=== PATIENT | female | born 1980 | race Two or more races ===

== ENCOUNTER 2017-08-09 09:53 | Emergency (ER) | payer SELFPAY ==
[2017-08-09 09:59] VITALS: BP 118/78; PULSE 88; RESP 20; TEMP 98.4; O2SAT 97
--- NOTE | 2017-08-09 10:22 | EDPHY ---
H & P Time Seen by Provider: 08/09/17 10:10 HPI/ROS: CHIEF COMPLAINT: Acute low back pain times 6 days HISTORY OF PRESENT ILLNESS: 37-year-old female history of chronic intermittent , recurrent low back pain, complaining of 6 days of bilateral paraspinous low back pain with mild left lower extremity radicular pain, arrives via private vehicle. Pain is reproducible with movement, better if she is standing erect or laying supine. Worse with bending or rotational movements of the waist. No incontinence or retention. No saddle anesthesia. No trauma or fall. No fever or chills. No flu-like symptoms. PRIMARY CARE PROVIDER: [facility] REVIEW OF SYSTEMS: A ten point review of systems was performed and is negative with the exception of the items mentioned in the HPI PAST MEDICAL & SURGICAL HISTORY: Chronic intermittent, recurrent low back pain. SOCIAL HISTORY: Nonsmoker no IV drug use , works as a [employer] PHYSICAL EXAM (Prior to examination, patient consented to physical exam, hands were washed and my usual and customary physical exam procedures followed) 1) GENERAL: Well-developed, well-nourished, alert and oriented. Appears uncomfortable 2) HEAD: Normocephalic, atraumatic 3) HEENT: Pupils equal, round, reactive to light bilaterally. Sclera anicteric. Nasopharynx, oropharynx, clear, no lesions. 4) NECK: Full range of motion, no meningeal signs. 5) LUNGS: Clear auscultation bilaterally, no wheezes, no rhonchi, no retractions. 6) HEART: Regular rate and rhythm, no murmur, no heave, no gallop. 7) ABDOMEN: No guarding, no rebound, no focal tenderness, negative McBurney's, negative Martinez's, negative Rovsing's, negative peritoneal sign, 8) MUSCULOSKELETAL: Moving all extremities, no focal areas of tenderness, no obvious trauma. No peripheral edema or discoloration. 9) BACK: tender to palpation paraspinous lumbar muscle. Reproducible pain with bending rotational movements the waist. No CVA tenderness, no midline vertebral tenderness, no fluctuance, no step-off, no obvious trauma, no visual or palpable abnormality. Patella, Achilles reflexes intact to bilateral strength 5/5 10) SKIN: No rash, no petechiae. 11) NEURO: Awake, alert, and oriented to person, place and time. Answers questions appropriately. There were no obvious focal neurologic abnormalities. No cerebellar dysfunction. Normal steady gait. Upper and lower extremities bilaterally with strength 5 / 5, reflexes 2+.. DIFFERENTIAL DIAGNOSIS: In no particular order, including but not limited to, fracture, sprain/strain, cauda equina, spinal infectious etiology. MEDICAL DECISION MAKING Lower index of suspicion for cauda equina, epidural abscess, epidural hematoma, lumbar myositis, diskitis, as the patient is neurologically intact in the lower extremities, has patella and Achilles reflexes intact and equal bilaterally, has no neurologic deficits, no incontinence, no retention, no midline pain, no fluctuance, afebrile, no flulike symptoms. Pain may be secondary to muscular strain, may be secondary to discogenic etiology. At this point I do not identify definitive indication for emergent MRI, however patient may necessitate this on an outpatient basis. Plan will be discharged with Flexeril , lidocaine patches, Medrol Dosepak. Inquired about prior history of steroid use and she denies adverse effects or mental health history. Patient given acute back pain precautions. Patient verbalizes understanding of discharge instructions. Care of patient under supervision of secondary supervising physician Dr Bansal who independently evaluated patient. Smoking Status: Never smoked Constitutional: Initial Vital Signs Temperature (C) 36.9 C 08/09/17 09:55 Heart Rate 88 08/09/17 09:55 Respiratory Rate 20 08/09/17 09:55 Blood Pressure 118/78 08/09/17 09:55 O2 Sat (%) 97 08/09/17 09:55 O2 Delivery Mode Room Air Allergies/Adverse Reactions: No Known Allergies Allergy (Unverified 08/09/17 09:55) Home Medications: Medication Instructions Recorded Cyclobenzaprine [Flexeril 10 MG 10 mg PO TID #15 tab 08/09/17 (RX)] Lidocaine [Lidoderm] 1 each TP BID #30 adh..patch 08/09/17 methylPREDNISolone [Medrol Dose 4 mg PO DAILY #1 ea 08/09/17 Que] MDM/Departure - Depart Disposition: Home, Routine, Self-Care Clinical Impression: Low back pain Qualifiers: Chronicity: acute Back pain laterality: bilateral Sciatica presence: with sciatica Sciatica laterality: sciatica of left side Qualified Code(s): M54.42 - Lumbago with sciatica, left side Condition: Good Instructions: Acute Low Back Pain (ED) Additional Instructions: Seek medical attention if you develop new or worsening pain, if you develop bladder or bowel dysfunction, numbness around your perineum, foot drop, or any other symptoms that concern you. Stand Alone Forms: Work Excuse, Statement of Treatment Prescriptions: Cyclobenzaprine [Flexeril 10 MG (RX)] 10 mg PO TID #15 tab Lidocaine [Lidoderm] 1 each TP BID #30 adh..patch methylPREDNISolone [Medrol Dose Que] 4 mg PO DAILY #1 ea
[2017-08-09] MEDS ORDERED: LIDOCAINE 4%/MENTHOL 1% PATCH TD ONE ×2 (10:31→10:38)
[2017-08-09] MEDS ORDERED: PATCH REMOVAL 1 EA PATCH TD SCH (21:00)
== END 2017-08-09 10:48 | disposition home or self-care (01) ==
DX: M54.42 Lumbago with sciatica, left side (principal)